=== PATIENT | female | born 1960 | race Caucasian/White ===

== ENCOUNTER → 2018-07-14 | Outpatient (CLI) | payer BC ==
--- NOTE | 2018-07-15 08:28 | RADIOLOGY IMAGING REPORT ---
FACILITY: [facility] PATIENT NAME: JOHN HICKS : [id number] MR: [id number]: [id number] EXAM DATE: [id number] ORDERING PHYSICIAN: CHRISTIANO BRIONES TECHNOLOGIST: Chloe Hermosillo PROCEDURE:BILATERAL DIGITAL SCREENING MAMMOGRAM WITH CAD ASSISTED INTERPRETATION & 3D TOMOSYNTHESIS COMPARISON:Prior mammograms 11/15/07, 09/12/01. INDICATIONS:SCREENING FINDINGS: Mildly heterogeneous fibroglandular tissue is seen throughout the breasts. The parenchymal pattern has remained stable allowing for difference in mammographic technique & patient positioning. There is no evidence of malignant appearing mass, malignant appearing calcifications or other secondary sign of malignancy in either breast. DIAGNOSTIC CATEGORY 1--NEGATIVE. RECOMMENDATIONS: ROUTINE MAMMOGRAM AND CLINICAL EVALUATION. IMPRESSION: BIRADS 1: Negative. No significant abnormality is seen. Dictated by: Kyra Robles M.D. on 07/14/2018 at 15:58 Transcribed by: KAREY on 07/15/2018 at 7:45 Approved by: Kyra Robles M.D. on 07/15/2018 at 8:27 [facility]
== END ==
LOC: MAMO 08:44
PROVIDERS: ATTEND Internal Medicine
DX: Z12.31 Encounter for screening mammogram for malignant neoplasm of breast (principal)
CPT/HCPCS: 77063; 77067

== ENCOUNTER 2019-01-02 18:13 | Emergency (ER) | payer BC ==
--- NOTE | 2019-01-02 19:02 | ER Report ---
History and Physical Time Seen By MD: 19:02 HPI/ROS CHIEF COMPLAINT: sore throat HISTORY OF PRESENT ILLNESS: This is a 58 year old female. She has had a sore throat for a few days now, worsening. Difficulty swallowing food or liquids. Several co-workers with strep. 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 No cough. No fevers or chills. No abdominal pain, nausea or vomiting. Allergies: Uncoded Allergies: POLLEN (Allergy, Intermediate, CONGESTION, 01/02/19) Home Meds Reported Medications Levothyroxine Sodium (SYNTHROID) 100 Mcg Tablet, 1 TAB PO QAM 01/02/19 Reviewed Nurses Notes: Yes Constitutional Vital Sign - Last 24 Hours 01/02/19 01/02/19 01/02/19 01/02/19 19:01 19:13 19:28 19:30 Temp 98.3 Pulse 74 73 74 Resp 20 B/P (MAP) 144/85 121/82 (95) Pulse Ox 94 94 93 O2 Delivery Room Air 01/02/19 01/02/19 01/02/19 01/02/19 19:43 19:58 20:00 20:05 Pulse 70 75 73 B/P (MAP) 121/81 (94) Pulse Ox 95 93 95 01/02/19 01/02/19 01/02/19 01/02/19 20:20 20:30 20:35 20:50 Pulse 75 77 74 B/P (MAP) 136/92 (107) Pulse Ox 93 94 94 01/02/19 01/02/19 01/02/19 01/02/19 21:05 21:20 21:35 21:40 Pulse 79 78 76 77 Pulse Ox 93 95 93 92 01/02/19 21:55 Pulse 83 Pulse Ox 94 Physical Exam General Appearance: The patient is alert. No acute distress. Eyes: Pupils are equal, round. ENT: Mucous membranes are moist. Normal oral mucosa. Posterior oropharynx with erythema, exudates. Normal tympanic membranes and canals. Neck: Supple. Has left submandibular lymphadenopathy, discomfort with palpation. Respiratory: Lungs are clear to auscultation. Cardiovascular: Regular rate and rhythm. No murmurs, gallops or rubs. Gastrointestinal: Abdomen is soft and non tender. Nondistended. No masses or organomegaly. Normal active bowel sounds. Neurological: Alert and oriented x3. No focal neurologic deficits Skin: Warm and dry. DIFFERENTIAL DIAGNOSIS: After history and physical exam, differential diagnosis was considered for sore throat, check for strep, possible mono, viral pharyngitis as well. Medical Decision Making Data Points Laboratory Hematology Test 01/02/19 19:08 01/02/19 20:48 Group A Streptococcus (PCR) Negative (NEGATIVE) Monoscreen Negative (NEGATIVE) Chemistry Test 01/02/19 19:08 01/02/19 20:48 Group A Streptococcus (PCR) Negative (NEGATIVE) Monoscreen Negative (NEGATIVE) ED Course/Re-evaluation ED Course Negative strep test, negative Monospot. Magic mouthwash provided with good relief and the patient was able to drink water. See instructions below for viral pharyngitis conservative management Decision to Disposition Date: Jan 02, 2019 Decision to Disposition Time: 22:01 Depart Departure Latest Vital Signs Vital Signs Date Time Temp Pulse Resp B/P (MAP) Pulse Ox O2 Delivery O2 Flow Rate FiO2 01/02/19 21:55 83 94 01/02/19 20:30 136/92 (107) 01/02/19 19:01 98.3 20 Room Air Impression: Primary Impression: Acute viral pharyngitis Condition: Improved Disposition: HOME OR SELF-CARE Patient Instructions: Pharyngitis (ED) Additional Instructions: Rest and increase fluid intake. Use Ibuprofen 200mg over the counter tablets, 3 tablets every 6 hours as needed for pain. You can take 1 teaspoon of the magic mouthwash solution, swish, gargle and swallow every 2 hours as needed for severe pain. DAISY COELHO MD Jan 02, 2019 19:02
[2019-01-02] MEDS ORDERED: LEVO100T95 PO (19:07)
[2019-01-02] MEDS ORDERED: LIDOCAINE 2% VISC SLN 15ML UDC PO ONE (19:15)
[2019-01-02] MEDS ORDERED: MAG HYD/AL HYD/SIMETH 30ML UDC PO ONE (19:15)
[2019-01-02] MEDS ORDERED: MAGIC MOUTHWASH 90 ML BTL PO PRN (19:20)
[2019-01-02 20:30] VITALS: BP 136/92
== END 2019-01-02 22:10 | disposition home or self-care (01) ==
LOC: ER 19:06
DX: J02.9 Acute pharyngitis, unspecified (principal)
CPT/HCPCS: 36415; 86308; 87653; 99283